=== PATIENT | male | born 1935 | race Caucasian/White ===

== ENCOUNTER → 2017-05-22 | Outpatient (CLI) | payer MEDICARE, OTHER ==
[2015-12-26 12:24] VITALS: BMI 30.1
[~2017-05-22] MED LIST: ACE325 PO; ALB6.7R INH; ALBU8.5H IH; ASP325 PO; AZI250 PO; BISA-229 PO; CALC-649 PO; CALC500T42 PO; CALC500T6 PO; CALC600T72 PO; CALC600T82 PO; CEPH500T7 PO; DILT-145 PO; DILT180C73 PO; DILT240C PO; DILT240C76 PO; DOC100 PO; DOCU-299 PO; DOCU-416 PO; FERR325C2 PO; FLUT16SP19 NS; FLUT1DIS28 IH; FURO40TA35 PO; GLUC100026 PO; GLUC1TAB13 PO; GLUC500C29 PO; GLUC500T22 PO; HYDR-317 PO; IBU200 PO; LEV500 PO; LEVO500T PO; LOR5 PO; METO25TA23 PO; METO25TA93 PO; MULT-56 PO; MULT-820 PO; MULT-865 PO; MULT-977 PO; NEOM28OI14 TP; NYST15CR32 TP; OMEG-23 PO; OSTEO BIFLEX PO; OXYB10TA21 PO; OXYGEN INH; OXYGENHOME INH; PANT40TA65 PO; PER PO; PHEN200T32 PO; POLY17PO25 PO; POTA-28 PO; POTA10CA40 PO; POTA99TA13 PO; PSYL0.5241 PO; PSYL660P5; RIVA20TA PO; SULI200T84 PO; TAMS0.4C25 PO; TOLT4CAP13 PO; TRAM-420 PO; TRAZ-163 PO; WAR5 PO; WAR75 PO; WARF10TA29 PO; [UNRECOGNIZED DRUG - REMARK]
== END ==
LOC: RESP 07:07
PROVIDERS: ATTEND Family Medicine
DX: Z99.81 Dependence on supplemental oxygen (principal); J98.4 Other disorders of lung
CPT/HCPCS: 94060; 94726; 94729

== ENCOUNTER 2017-06-24 09:00 | Outpatient (RCR) | payer MEDICARE, OTHER ==
[2015-12-26 12:24] VITALS: BMI 30.1
== END 2017-06-27 ==
LOC: RESP 09:00
PROVIDERS: ATTEND Family Medicine
DX: J44.9 Chronic obstructive pulmonary disease, unspecified (principal)
CPT/HCPCS: G0424 ×9

== ENCOUNTER → 2017-07-16 | Outpatient (CLI) | payer MEDICARE, OTHER ==
[2015-12-26 12:24] VITALS: BMI 30.1
--- NOTE | 2017-07-18 13:57 | RT HOLTER TEST ---
FACILITY: [facility] PATIENT NAME: NOVA MILLER : [id number] MR: [id number] V: [id number] EXAM DATE: ORDERING PHYSICIAN: FABIAN BLAIR TECHNOLOGIST: Dejon Hook-up date: 2017-07-16 14:39:00 Duration: 24:39:00 Test Indications: TORY/TACHY/A-FIB Medications: SEE LIST 05954 QRS complexes 699 Ventricular ectopics which represent <1 % of total QRS comp. 3 Supraventricular ectopics which represent <1 % of total QRS comp. * Paced QRS complexes which represent % of total QRS comp. VENTRICULAR ECTOPY 691 Isolated 194 Bigeminal Cycles 4 Couplets 0 Runs 0 Beats in Runs * Beats LONGEST at * BPM at :: -- * Beats FASTEST at * BPM at :: -- SUPRAVENTRICULAR ECTOPY 3 Isolated 0 Couplets 0 Runs 0 Beats in Runs * Beats LONGEST at * BPM at :: -- * Beats FASTEST at * BPM at :: -- HEART RATES 31 MIN at 05:56:31 2017-07-17 64 AVG 177 MAX at 09:46:31 2017-07-17 LONGEST RR 2.128 secs at 02:20:59 2017-07-17 S-T LEVELS Channel 1 -12.800 mm MIN at 14:39:00 2017-07-16 -12.800 mm MAX at 14:39:00 2017-07-16 Channel 3 -12.800 mm MIN at 14:39:00 2017-07-16 -12.800 mm MAX at 14:39:00 2017-07-16 Underlying rhythm is atrial fibrillation. Episodes of tachycardia were noted with rates as high as 17 0bpm. Bradycardia with rates in 30-35bpm range were noted during usual sleeping hours. Pauses in 2-2.5 second range were noted. Occasional ventricular ectopy with some bigeminy was noted throughout the study. A few couplets were recorded. No runs were noted. Confirmed by JAMEEL RODRÍGUEZ ([id number]) on 07/18/2017 1:57:02 PM Referred By: Overread By: JAMEEL RODRÍGUEZ
== END ==
LOC: RESP 14:25
PROVIDERS: ATTEND Family Medicine
DX: I48.91 Unspecified atrial fibrillation (principal)
CPT/HCPCS: 93225; 93226

== ENCOUNTER 2017-07-31 09:00 | Outpatient (RCR) | payer MEDICARE, OTHER ==
[2015-12-26 12:24] VITALS: BMI 30.1
[2017-08-06] MEDS ORDERED: POTA10CA40 PO (16:35)
[2017-08-06] MEDS ORDERED: FURO40TA35 PO (16:35)
== END 2017-08-07 ==
LOC: RESP 09:00
PROVIDERS: ATTEND Family Medicine
DX: J44.9 Chronic obstructive pulmonary disease, unspecified (principal)
CPT/HCPCS: G0424 ×7

== ENCOUNTER → 2017-08-11 | Outpatient (CLI) | payer MEDICARE, OTHER ==
[2015-12-26 12:24] VITALS: BMI 30.1
[2017-08-11 11:16] LABS: PLATELET COUNT, AUTOMATED 163 K/uL (150-450)
== END ==
LOC: LAB 10:53
PROVIDERS: ATTEND Family Medicine
DX: I10 Essential (primary) hypertension (principal)
CPT/HCPCS: 36415; 82040; 82247; 82310; 82374; 82435; 82565; 82947; 84075; 84132; 84155; 84295; 84450; 84460; 84520; 85025

== ENCOUNTER 2017-10-16 14:30 | Outpatient (RCR) | payer MEDICARE, OTHER ==
[2015-12-26 12:24] VITALS: BMI 30.1
--- NOTE | 2017-09-18 13:53 | PT INITIAL EVALUATION ---
MEDICAL DIAGNOSIS: back pain, knee pain (bilateral) TREATMENT DIAGNOSIS: same DATE OF ONSET: 09/17/13 SUBJECTIVE: Av Akbar presents to physical therapy with complaints of low back pain and B knee pain that probably started 3-4 years ago following an accident in which he broke his back and 6 ribs. He reports that he can only walk or stand for 10-15 minutes before he is required to sit down due to the increased low back pain. He reports that his pain goes away if he sits down anywhere. Furthermore, he reports that his pain is better if he lies down as well. He reports that he is able to sleep without any problems. He reports that he had imaging 3-4 years ago. He denies unexplained weight loss, night pain, abnormal gait, or increased pain with coughing, sneezing, or straining. Pain location is L3-S1 spinous process, B knees (anterior), anterior hip (L) and described as . Pain scale is 1 on a ten point pain scale. REHAB PROBLEM LIST: Increased Pain Decreased ROM Decreased Strength Decreased Endurance Decreased Balance Decreased Function Decreased Gait PREVIOUS MEDICAL HISTORY: See EMR OCCUPATION: Retired OBJECTIVE: Posture: He demonstrated B rounded shoulders, forward head, increased thoracic kyphosis, and decreased lumbar lordosis. ROM: Trunk AROM: flexion: NIL with muscular end feel. extension: NIL with painful end feel. sidegliding R: NIL with muscular end feel. sidegliding L: NIL with painful end feel Strength: B hip abduction, adduction, extension: 4/5. B hip adduction, B knee extension and flexion: 4+/5. B ankle DF and PF: 4/5; no pain with MMT's. Palpation: TTP: L3-S1 spinous process, B anterior knees Sensation: Will assess in the next few sessions Special Tests: Will assess B knee in the next few sessions. Repeated prone in lying: pain felt during the test and better following the test with increased trunk AROM in all directions with muscular end feels versus painful end feels in all directions. Mobility: Independent Gait: Without AD: he demonstrated the following gait mechanics: decreased velocity, forward trunk lean, increased base of support, decreased pelvic rotation, and decreased B feet clearance, however, he did not demonstrate any LOBs throughout the session. Balance: Will assess in the next few sessions ASSESSMENT: Av will benefit from skilled physical therapy addressing the listed impairments to improve function and QOL. Based on his examination, his provisional classification would be posterior derangement that responded well to extension based principles. He is independent on his specific exercise addressing his low back pain along with education on proper use of lumbar support to improve posture while sitting down. Short Term Goals 1 week: Pt will demonstrate centralized low back pain to improve function and QOL. 4 weeks: Pt will demonstrate abolished low back pain to improve function and QOL. 6 weeks: Pt will improve B LE strength, decrease knee pain, and return to prior level of function to improve function and QOL. Patient's Goals reduce back pain, be able to walk without pain, and reduce knee pain with standing and sitting (or increasing B knee bend) PLAN: Patient to be seen for Manual Therapy/STM/MET Strengthening/condition Range of Motion Spinal Stabilization Work Hardening/Cond Stretching Neuromuscular Re-ed Closed Chain Program Posture/Body mechanics Gait Trg/Balance Trg Home Exercise Program Therapeutic Activities 2x/Week for 6 Weeks If you have any questions, comments, or concerns about this report or plan, please contact me at . Thank you, Kermit Santana, PT, DPT MTDD
--- NOTE | 2017-11-11 16:15 | PT PLAN OF CARE ---
Physician: Brenda Christianson MD Patient is being seen: 2x/week Therapist: Kermit Santana, PT, DPT Medical Diagnosis: back pain, knee pain (bilateral) Treatment Diagnosis: same Date of Onset: 09/17/13 Date of Initial Evaluation: 09/17/17 Date patient was last seen: 11/06/17 Number of treatments: 6 Number of cancellations/No shows: 2 INTERVENTIONS: Manual Therapy/STM/MET Strengthening/condition Range of Motion Spinal Stabilization Work Hardening/Cond Stretching Neuromuscular Re-ed Closed Chain Program Posture/Body mechanics Gait Trg/Balance Trg Home Exercise Program Therapeutic Activities GOALS: 1 week: Pt will demonstrate centralized low back pain to improve function and QOL. Progressed well 4 weeks: Pt will demonstrate abolished low back pain to improve function and QOL. Progressed well 6 weeks: Pt will improve B LE strength, decrease knee pain, and return to prior level of function to improve function and QOL. Progressed well PATIENT'S GOAL: reduce back pain, be able to walk without pain, and reduce knee pain with standing and sitting (or increasing B knee bend) Status of Patient's Goals: Progressed well Patient Compliance: Good Prognosis: Good Reasons for continuing therapy: This is a discharge note for Av Akbar. He was progressing well with decreased and abolished low back pain along with increased gluteal, hamstring, quad, gastroc/soleus strength; however, he experienced a fall and injuried his shoulder. Furthermore, he reports that he would like to take a break from PT to allow his shoulder to heal and then he will come when he feels like he is ready. As a result, he will be discharged from PT. Posture: He demonstrated B rounded shoulders, forward head, increased thoracic kyphosis, and decreased lumbar lordosis. ROM: Trunk AROM: flexion: NIL with muscular end feel. extension: NIL with painful end feel. sidegliding R: NIL with muscular end feel. sidegliding L: NIL with painful end feel Strength: B hip abduction, adduction, extension: 4/5. B hip adduction, B knee extension and flexion: 4+/5. B ankle DF and PF: 4/5; no pain with MMT's. Palpation: TTP: L3-S1 spinous process, B anterior knees Special Tests: Will assess B knee in the next few sessions. Repeated prone in lying: pain felt during the test and better following the test with increased trunk AROM in all directions with muscular end feels versus painful end feels in all directions. Mobility: Independent If you have any questions, please contact me at [phone]. Thank you, Kermit Santana PT, DPT CM
== END 2017-10-16 18:00 | disposition home or self-care (01) ==
LOC: PT 14:30
PROVIDERS: ATTEND Family Medicine
DX: M25.562 Pain in left knee (principal); M25.561 Pain in right knee; M54.5 Low back pain
CPT/HCPCS: 97162

== ENCOUNTER 2017-10-28 11:46 | Emergency (ER) | payer MEDICARE, OTHER ==
[2015-12-26 12:24] VITALS: Wt 97.5 kg
--- NOTE | 2017-10-28 11:49 | ER Report ---
History and Physical Time Seen By MD: 11:48 HPI/ROS CHIEF COMPLAINT: Fall down steps HISTORY OF PRESENT ILLNESS: Patient is a 82-year-old male here with complaints of right shoulder pain, mild headache on Xarelto and a right lazo laceration/ abrasion. Unknown last tetanus date. Patient denies neck or back pain, chest pain, shortness of breath, abdominal pain, nausea, vomiting. He reports that he missed a step all descending and fell. Denies loss of consciousness. REVIEW OF SYSTEMS: Constitutional: No fever, no chills. Eyes: No discharge. ENT: No sore throat. Cardiovascular: No chest pain, no palpitations. Respiratory: No cough, no shortness of breath. Gastrointestinal: No abdominal pain, no vomiting. Genitourinary: No hematuria. Musculoskeletal: No back pain. Skin: Small abrasion to the lazo of her right lower extremity Neurological: Mild headache, no focal neurological deficits. Allergies: Coded Allergies: No Known Allergies (Verified Allergy, Mild, 09/12/06) Uncoded Allergies: HAYFEVER (Allergy, Intermediate, UNKNOWN, 10/16/11) Home Meds Active Scripts Furosemide (LASIX) 40 Mg Tablet, 1 TAB PO DAILY for 90 Days, #135 TAB 1 Refill Prov:FABIAN BLAIR MD 08/06/17 Potassium Chloride (POTASSIUM CHLORIDE) 10 Meq Capsule.er, 1 CAP PO DAILY for 90 Days, #90 CAP 3 Refills Prov:FABIAN BLAIR MD 08/06/17 Diltiazem Hcl (CARDIZEM CD) 180 Mg Cap.er.24h, 180 MG PO DAILY for 90 Days, #90 CAP 4 Refills Prov:FABIAN BLAIR MD 07/11/17 Fluticasone Prop 50 Mcg Ns (FLONASE 50 MCG NS) 16 Gm [place].susp, 2 SPRAYS NS QDAY for 30 Days, #1 BOT 3 Refills Prov:FABIAN BLAIR MD 06/16/17 Rivaroxaban 20 Mg (XARELTO 20 MG) 20 Mg Tablet, 1 TAB PO DAILY, #90 TAB 1 Refill Prov:FABIAN BLAIR MD 05/27/17 Albuterol Sulfate 90 Mcg/Act (PROAIR HFA 90 MCG/ACT) 8.5 Gm Hfa.aer.ad, 1-2 PUFF IH Q4H Y for SHORTNESS OF BREATH, #1 INHALER 11 Refills Prov:FABIAN BLAIR MD 05/23/17 NYSTATIN 098538 UNT/ML Topical Cream (NYSTATIN 196310 UNT/ML Topical Cream) 15 Gm Cream..g., 1 JUAN TP BID, #15 GM Apply topically to affected area twice daily for 2 weeks. Prov:FABIAN BLAIR MD 01/22/17 Reported Medications Calcium Carbonate/Vitamin D3 (CALCIUM 600 + VIT D 200 TABLET) 1 Each Tablet, 1 EACH PO DAILY 01/22/17 Oxygen (OXYGEN) Inha, 2 L INH, L 01/22/17 [place]-3 Fatty Acids/Fish Oil (FISH OIL 1,000 MG SOFTGEL) 1 Each Capsule, 1 EACH PO BID, CAPSULE 01/22/17 Multivit-Min/FA/Lycopen/Lutein (Men 50 Plus Multivitamin Tab) 300 Mcg-600 Mcg- 300 Mcg Tablet, 1 TAB PO DAILY 01/22/17 Glucosamine Hcl/Chondr Painting A Na (OSTEO BI-FLEX CAPLET) 1 Each Tablet, 1 EACH PO BID 01/22/17 Docusate Sodium (COLACE) 100 Mg Capsule, 1 CAP PO BID, CAPSULE 01/22/17 Bisacodyl (DULCOLAX) 5 Mg Tablet.dr, 2 TAB PO HS 01/22/17 Polyethylene Glycol 3350 (MIRALAX) Unknown Strength Powd.pack, PO, PKT 01/01/17 Hx Smoking: Yes (SMOKED 1 PPD SINCE AGE 11) Smoking Status: Former Smoker Exposure to Second Hand Smoke?: No Hx Substance Use Disorder: No Hx Alcohol Use: Yes Constitutional Vital Sign - Last 24 Hours 10/28/17 10/28/17 10/28/17 10/28/17 11:53 11:54 12:00 12:16 Temp 97.8 Pulse 84 Resp 20 B/P (MAP) 145/83 145/83 (103) 132/69 (90) Pulse Ox 95 99 O2 Delivery Nasal Cannula 10/28/17 12:30 B/P (MAP) 133/64 (87) Physical Exam General Appearance: The patient is alert, has no immediate need for airway protection and no signs of toxicity. NAD Eyes: Pupils equal and round no pallor or injection. ENT, Mouth: Mucous membranes are moist. Respiratory: There are no retractions, lungs are clear to auscultation. Cardiovascular: Regular rate and rhythm. [ ] Gastrointestinal: Abdomen is soft and non tender, no masses, bowel sounds normal. Neurological: No focal deficits Skin: + right lazo laceration Musculoskeletal: Neck is supple non tender. Extremities are nontender, nonswollen and have full range of motion. DIFFERENTIAL DIAGNOSIS: After history and physical exam differential diagnosis was considered for concussion, contusion, intracranial bleeding, fracture. Medical Decision Making EKG/Imaging Imaging EXAMINATION: Right shoulder, 2 views 10/28/2017 11:57 AM HISTORY: fall, pain COMPARISON: Chest x-ray which partially visualized shoulder 04/09/2017. FINDINGS: Images include frontal and scapular Y projections. Spurring of the AC joint. Irregularity of the undersurface of the acromion with heterogeneous lucencies in the humeral head along the cuff insertion and upward subluxation of the humeral head with respect to the bony glenoid suggesting cuff pathology. No dislocation. No acute bony injury. There are curvilinear densities adjacent to the right hilum and over the right upper lung which are unchanged suggestive of embolized glue from previous vertebroplasty. IMPRESSION: No acute bony injury of the shoulder. Degenerative changes and features suggesting cuff pathology. EXAMINATION: CT Head Without Contrast 10/28/2017 11:57 AM HISTORY: HEADACHE TECHNIQUE: Contiguous axial images were obtained from the skull base to the vertex without intravenous contrast. One of the following dose optimization techniques was utilized in the performance of this exam: Automated exposure control; adjustment of the mA and/ or kV according to the patient's size; or use of an iterative reconstruction technique. Specific details can be referenced in the facility's radiology CT exam operational policy. COMPARISON STUDIES: 02/10/2017. FINDINGS: Ventricles / sulci / fissures: Enlarged lateral and third ventricles. The ventricles are essentially stable in size. An oblique measurement across the posterior left lateral ventricle is now 3.0 cm (image 42), 2.9 cm previously. The third ventricle measures at 8 mm transversely (image 39), not significantly changed. CSF density extra-axial asymmetry lateral to the cerebral and the left is unchanged. Masses / hemorrhage / midline shift: negative White matter: Deep white matter and periventricular hypodensity is not significantly changed. Rivas-white differentiation: No acute finding. Extra-axial spaces: negative Dural venous sinuses / arterial structures: Internal carotid intracranial atherosclerotic calcifications. Skull base / calvarium: Stable appearance status post left suboccipital craniotomy. No acute finding. Visualized mastoid air cells / paranasal sinuses: negative IMPRESSION: 1. Stable appearance status post left suboccipital craniotomy. 2. Ventricular prominence and white matter hypodensities are unchanged. No acute mass, stroke, or hemorrhage. ED Course/Re-evaluation ED Course Patient is an 82-year-old male who fell down several steps prior to arrival and struck his head and right shoulder as well as right lazo. Patient is on Xarelto so he came to the ED for further evaluation. CT showed no acute intracranial pathology. X-ray of the shoulder showed no acute fracture, dislocation. Patient was stable at time of discharge. Decision to Disposition Date: Oct 28, 2017 Decision to Disposition Time: 13:00 Depart Departure Latest Vital Signs Vital Signs Date Time Temp Pulse Resp B/P (MAP) Pulse Ox O2 Delivery O2 Flow Rate FiO2 10/28/17 12:30 133/64 (87) 10/28/17 12:16 99 10/28/17 11:53 97.8 84 20 Nasal Cannula Impression: Primary Impression: Fall Condition: Improved Disposition: HOME OR SELF-CARE Referrals: FABIAN BLAIR MD (PCP) Patient Instructions: Contusion in Adults (ED), Fall Prevention (ED) Additional Instructions: Please follow up with her family doctor in the next week. UMU POLLACK DO Oct 28, 2017 11:49
[2017-10-28] MEDS ORDERED: DIPHTH/TETANUS/ACEL. PERTUSSIS IM ONLY ONE (12:00)
[2017-10-28 12:30] VITALS: BP 133/64
--- NOTE | 2017-10-28 12:42 | RADIOLOGY IMAGING REPORT ---
FACILITY: [facility] [place] PATIENT NAME: Av Akbar : 1935 MR: [id number] V: [id number] EXAM DATE: ORDERING PHYSICIAN: UMU POLLACK TECHNOLOGIST: Location: [facility] Patient: Av Akbar : 1935 Visit/Account:[id number] Date of Sevice: 10/28/2017 EXAMINATION: Right shoulder, 2 views 10/28/2017 11:57 AM HISTORY: fall, pain COMPARISON: Chest x-ray which partially visualized shoulder 04/09/2017. FINDINGS: Images include frontal and scapular Y projections. Spurring of the AC joint. Irregularity of the undersurface of the acromion with heterogeneous lucencies in the humeral head along the cuff i nsertion and upward subluxation of the humeral head with respect to the bony glenoid suggesting cuff pathology. No dislocation. No acute bony injury. There are curvilinear densities adjacent to the right hilum and over the right upper lung which are u nchanged suggestive of embolized glue from previous vertebroplasty. IMPRESSION: No acute bony injury of the shoulder. Degenerative changes and features suggesting cuff p athology. Report Dictated By: Gregorio Szymanski MD at 10/28/2017 12:34 PM Report E-Signed By: Gregorio Szymanski MD at 10/28/2017 12:37 PM WSN:[id number]
--- NOTE | 2017-10-28 12:54 | RADIOLOGY IMAGING REPORT ---
FACILITY: [facility] [place] PATIENT NAME: Av Akbar : 1935 MR: [id number] V: [id number] EXAM DATE: ORDERING PHYSICIAN: UMU POLLACK TECHNOLOGIST: Location: [facility] Patient: Av Akbar : 1935 Visit/Account:[id number] Date of Sevice: 10/28/2017 EXAMINATION: CT Head Without Contrast 10/28/2017 11:57 AM HISTORY: HEADACHE TECHNIQUE: Contiguous axial images were obtained from the skull base to the vertex without intraven ous contrast. One of the following dose optimization techniques was utilized in the performance of this exam: Autom ated exposure control; adjustment of the mA and/or kV according to the patient's size; or use of an i terative reconstruction technique. Specific details can be referenced in the facility's radiology C T exam operational policy. COMPARISON STUDIES: 02/10/2017. FINDINGS: Ventricles / sulci / fissures: Enlarged lateral and third ventricles. The ventricles are essentially stable in size. An oblique measurement across the posterior left lateral ventricle is now 3.0 cm (phill ge 42), 2.9 cm previously. The third ventricle measures at 8 mm transversely (image 39), not signific antly changed. CSF density extra-axial asymmetry lateral to the cerebral and the left is unchanged. Masses / hemorrhage / midline shift: negative White matter: Deep white matter and periventricular hypodensity is not significantly changed. Rivas-white differentiation: No acute finding. Extra-axial spaces: negative Dural venous sinuses / arterial structures: Internal carotid intracranial atherosclerotic calcificati ons. Skull base / calvarium: Stable appearance status post left suboccipital craniotomy. No acute finding. Visualized mastoid air cells / paranasal sinuses: negative IMPRESSION: 1. Stable appearance status post left suboccipital craniotomy. 2. Ventricular prominence and white matter hypodensities are unchanged. No acute mass, stroke, or hem orrhage. Report Dictated By: Gregorio Szymanski MD at 10/28/2017 12:41 PM Report E-Signed By: Gregorio Szymanski MD at 10/28/2017 12:49 PM WSN:[id number]
== END 2017-10-28 13:18 | disposition home or self-care (01) ==
LOC: ER 11:54
DX: M25.511 Pain in right shoulder (principal); R51 Headache; W10.9XXA Fall (on) (from) unspecified stairs and steps, initial encounter
CPT/HCPCS: 70450; 73030; 90471; 90715; 99284; A4565

== ENCOUNTER 2017-12-18 18:17 | Emergency (ER) | payer MEDICARE, OTHER ==
[2015-12-26 12:24] VITALS: Wt 97.5 kg
[~2017-12-18 18:17] MED LIST changes: +ACET-2146 PO; -TRAZ-163 PO; +TRAZ100T31 PO
--- NOTE | 2017-12-18 19:50 | RADIOLOGY IMAGING REPORT ---
FACILITY: [facility] PATIENT NAME: Av Akbar : 1935 MR: [id number] V: [id number] EXAM DATE: ORDERING PHYSICIAN: YUAN MCCRARY TECHNOLOGIST: Location: [facility] Patient: Av Akbar : 1935 Visit/Account:[id number] Date of Sevice: 12/18/2017 THORACIC SPINE 2 VIEW LUMBAR SPINE 2 OR 3 VIEW INDICATION: Fall. Back pain. COMPARISON: Chest x-ray dated 03/20/2017. Thoracolumbar spine radiographs dated 09/30/2013. FINDINGS: AP and lateral views of the thoracic and lumbar spine. Diffuse osteopenia. Bilateral pedicle screws at T11, T12, L2, L3, and L4 with interconnecting rods. No radiographic evide nce of hardware failure. Stable chronic L1 compression fracture with approximately 75% loss of vertebral body height. Stable c hronic L2 compression fracture with up to 40% loss of vertebral body height anteriorly. No additional compression fractures. Mild degenerative changes in the thoracic and lumbar spine. Stable cement in the right upper lobe of the lung, likely within vascular structures. This may be sec ondary to vertebroplasty cement embolization. Aortic calcifications. Multiple surgical clips projecting over the pelvis. IMPRESSION: Stable chronic L1 and L2 compression fractures. No new compression fractures. Report Dictated By: Peng Last MD at 12/18/2017 7:37 PM Report E-Signed By: Peng Last MD at 12/18/2017 7:47 PM WSN:[email or web address]
--- NOTE | 2017-12-18 19:50 | RADIOLOGY IMAGING REPORT ---
FACILITY: [facility] [place] PATIENT NAME: Av Akbar : 1935 MR: [id number] V: [id number] EXAM DATE: ORDERING PHYSICIAN: YUAN MCCRARY TECHNOLOGIST: Location: [facility] Patient: Av Akbar : 1935 Visit/Account:[id number] Date of Sevice: 12/18/2017 THORACIC SPINE 2 VIEW LUMBAR SPINE 2 OR 3 VIEW INDICATION: Fall. Back pain. COMPARISON: Chest x-ray dated 03/20/2017. Thoracolumbar spine radiographs dated 09/30/2013. FINDINGS: AP and lateral views of the thoracic and lumbar spine. Diffuse osteopenia. Bilateral pedicle screws at T11, T12, L2, L3, and L4 with interconnecting rods. No radiographic evide nce of hardware failure. Stable chronic L1 compression fracture with approximately 75% loss of vertebral body height. Stable c hronic L2 compression fracture with up to 40% loss of vertebral body height anteriorly. No additional compression fractures. Mild degenerative changes in the thoracic and lumbar spine. Stable cement in the right upper lobe of the lung, likely within vascular structures. This may be sec ondary to vertebroplasty cement embolization. Aortic calcifications. Multiple surgical clips projecting over the pelvis. IMPRESSION: Stable chronic L1 and L2 compression fractures. No new compression fractures. Report Dictated By: Peng Last MD at 12/18/2017 7:37 PM Report E-Signed By: Peng Last MD at 12/18/2017 7:47 PM WSN:[id number]
--- NOTE | 2017-12-18 19:56 | ER Report ---
History and Physical Time Seen By MD: 18:20 Hx. of Stated Complaint: FALL YESTERDAY - C/O MEDIAL LOW BACK PAIN HPI/ROS CHIEF COMPLAINT: back pain HISTORY OF PRESENT ILLNESS: pt was walking in house yesterday when he tripped on rug, his leg gave out, causing him to tumble and fall on his hands, knees, and left side. He did not strike head, lose consciousness, or suffer any extremity injury or pain. His son was present and helped him up no patient feels like he may have been able to get up by himself. At the time patient noted some mid back pain and left hip pain but was not too concerned about this. He ambulated normally yesterday and went to bed without discomfort. When he awoke he did not feel pain until he got up to move and then again noticed low and mid back pain and mild left hip pain. Today patient has been able to ambulate at baseline though he notes that ambulating with his walker does help ease the pain a little bit. Patient has not taken anything for the pain or attempted to ice the area. He has no numbness in the legs weakness incontinence. REVIEW OF SYSTEMS: Constitutional: No fever, no chills. Eyes: No discharge. ENT: No sore throat. Cardiovascular: No chest pain, no palpitations. Respiratory: No cough, no shortness of breath. Gastrointestinal: No abdominal pain, no vomiting. Genitourinary: No hematuria. Musculoskeletal: above Skin: No rashes. Neurological: No headache. Allergies: Coded Allergies: No Known Allergies (Verified Allergy, Mild, 12/18/17) Uncoded Allergies: HAYFEVER (Allergy, Intermediate, UNKNOWN, 10/16/11) Home Meds Active Scripts Rivaroxaban 20 Mg (XARELTO 20 MG) 20 Mg Tablet, 1 TAB PO DAILY, #90 TAB 1 Refill Prov:FABIAN BLAIR MD 12/01/17 Furosemide (LASIX) 40 Mg Tablet, 1 TAB PO DAILY for 90 Days, #135 TAB 1 Refill Prov:FABIAN BLAIR MD 08/06/17 Potassium Chloride (POTASSIUM CHLORIDE) 10 Meq Capsule.er, 1 CAP PO DAILY for 90 Days, #90 CAP 3 Refills Prov:FABIAN BLAIR MD 08/06/17 Diltiazem Hcl (CARDIZEM CD) 180 Mg Cap.er.24h, 180 MG PO DAILY for 90 Days, #90 CAP 4 Refills Prov:FABIAN BLAIR MD 07/11/17 Fluticasone Prop 50 Mcg Ns (FLONASE 50 MCG NS) 16 Gm [place].susp, 2 SPRAYS NS QDAY for 30 Days, #1 BOT 3 Refills Prov:FABIAN BLAIR MD 06/16/17 Albuterol Sulfate 90 Mcg/Act (PROAIR HFA 90 MCG/ACT) 8.5 Gm Hfa.aer.ad, 1-2 PUFF IH Q4H Y for SHORTNESS OF BREATH, #1 INHALER 11 Refills Prov:FABIAN BLAIR MD 05/23/17 NYSTATIN 160292 UNT/ML Topical Cream (NYSTATIN 157045 UNT/ML Topical Cream) 15 Gm Cream..g., 1 JUAN TP BID, #15 GM Apply topically to affected area twice daily for 2 weeks. Prov:FABIAN BLAIR MD 01/22/17 Reported Medications Acetaminophen 500 Mg Tab (ACETAMINOPHEN EXTRA STRENGTH) 500 Mg Tablet, 2 TAB PO BID, TAB 12/11/17 Calcium Carbonate/Vitamin D3 (CALCIUM 600 + VIT D 200 TABLET) 1 Each Tablet, 1 EACH PO DAILY 01/22/17 Oxygen (OXYGEN) Inha, 2 L INH, L 01/22/17 [place]-3 Fatty Acids/Fish Oil (FISH OIL 1,000 MG SOFTGEL) 1 Each Capsule, 1 EACH PO BID, CAPSULE 01/22/17 Multivit-Min/FA/Lycopen/Lutein (Men 50 Plus Multivitamin Tab) 300 Mcg-600 Mcg- 300 Mcg Tablet, 1 TAB PO DAILY 01/22/17 Glucosamine Hcl/Chondr Painting A Na (OSTEO BI-FLEX CAPLET) 1 Each Tablet, 1 EACH PO BID 01/22/17 Docusate Sodium (COLACE) 100 Mg Capsule, 1 CAP PO BID, CAPSULE 01/22/17 Bisacodyl (DULCOLAX) 5 Mg Tablet.dr, 2 TAB PO HS 01/22/17 Polyethylene Glycol 3350 (MIRALAX) Unknown Strength Powd.pack, PO, PKT 01/01/17 Reviewed Nurses Notes: Yes Hx Smoking: Yes (SMOKED 1 PPD SINCE AGE 11) Smoking Status: Former Smoker Exposure to Second Hand Smoke?: No Hx Substance Use Disorder: No Hx Alcohol Use: Yes Constitutional Vital Sign - Last 24 Hours 12/18/17 12/18/17 12/18/17 12/18/17 18:23 18:31 18:45 19:00 Temp 97.5 Pulse 68 56 ??? Resp 20 B/P (MAP) 181/90 161/72 (101) Pulse Ox 93 97 O2 Delivery Nasal Cannula 12/18/17 12/18/17 12/18/17 12/18/17 19:01 19:15 19:30 19:31 B/P (MAP) ???/??? (1665) 161/70 (100) Pulse Ox 99 98 12/18/17 12/18/17 19:45 19:59 Pulse 65 B/P (MAP) 154/78 (103) Pulse Ox 85 Physical Exam General Appearance: [The patient is alert, has no immediate need for airway protection and no signs of toxicity.] [ ] Eyes: Pupils equal and round no pallor or injection. ENT, Mouth: Mucous membranes are moist. Respiratory: There are no retractions, lungs are clear to auscultation. Cardiovascular: Regular rate and rhythm. Gastrointestinal: Abdomen is soft and non tender, no masses, bowel sounds normal. Neurological: alert, oriented, moves all extremities Skin: Warm and dry, no rashes. Musculoskeletal: Neck is supple non tender. Extremities are nontender, nonswollen and have full range of motion. back exam - t12-l3 ttp, no stepoffs, mild ttp, midline remote scar intact 5/5 ms legs without pain no hip pain or tenderness DIFFERENTIAL DIAGNOSIS: After history and physical exam differential diagnosis was considered for fracture, cauda equina, soft tissue injury or other emergent etiology Medical Decision Making EKG/Imaging Imaging X-ray: t, lspine was obtained. I viewed the images myself on the PACS system. My interpretation of the images is: no fracture, hardware intact. The radiologist interpretation had no clinically significant variation from this interpretation. ED Course/Re-evaluation ED Course Patient refuses pain medications in the emergency department. Patient ambulates without apparent discomfort. X-rays obtained due to midline tenderness and age the low pretest probability for fracture. X-rays unremarkable and show no acute fracture. On reassessment patient is comfortable again refuses pain medications. We discussed management at home as well as strict return precautions for any worsening symptoms that would indicate missed fracture, cauda equina, infection or other concerns. Decision to Disposition Date: Dec 18, 2017 Decision to Disposition Time: 20:00 Depart Departure Latest Vital Signs Vital Signs Date Time Temp Pulse Resp B/P (MAP) Pulse Ox O2 Delivery O2 Flow Rate FiO2 12/18/17 19:59 154/78 (103) 12/18/17 19:45 65 85 12/18/17 18:23 97.5 20 Nasal Cannula Impression: Primary Impression: Back pain Condition: Improved Disposition: HOME OR SELF-CARE Referrals: FABIAN BLAIR MD (PCP) Patient Instructions: Acute Low Back Pain (ED) Problem Qualifiers Primary Impression: Back pain Back pain location: low back pain Chronicity: acute Back pain laterality: midline Sciatica presence: without sciatica Qualified Codes: M54.5 - Low back pain YUAN MCCRARY MD Dec 18, 2017 19:56
[2017-12-18 19:59] VITALS: BP 154/78
== END 2017-12-18 20:10 | disposition home or self-care (01) ==
LOC: ER 18:35
DX: M54.5 Low back pain (principal); W01.0XXA Fall on same level from slipping, tripping and stumbling without subsequent striking against object, initial encounter; Z87.891 Personal history of nicotine dependence; Z99.81 Dependence on supplemental oxygen; Z79.899 Other long term (current) drug therapy
CPT/HCPCS: 72070; 72100; 99283

== ENCOUNTER → 2018-01-05 | Outpatient (CLI) | payer MEDICARE, OTHER ==
[2015-12-26 12:24] VITALS: BMI 30.1
[~2018-01-05] MED LIST changes: +DICL100G39 TOP
[2018-01-05 11:29] LABS: PLATELET COUNT, AUTOMATED 228 K/uL (150-450)
== END ==
LOC: LAB 10:38
PROVIDERS: ATTEND Family Medicine
DX: I48.91 Unspecified atrial fibrillation (principal); M54.9 Dorsalgia, unspecified; W19.XXXA Unspecified fall, initial encounter
CPT/HCPCS: 36415; 82040; 82247; 82310; 82374; 82435; 82565; 82947; 84075; 84132; 84155; 84295; 84450; 84460; 84520; 85025

== ENCOUNTER → 2018-04-23 | Outpatient (CLI) | payer MEDICARE, OTHER ==
[2015-12-26 12:24] VITALS: BMI 30.1
[~2018-04-23] MED LIST changes: +FLU180SY11 IM
== END ==
LOC: LAB 14:19
PROVIDERS: ATTEND Family Medicine
DX: I10 Essential (primary) hypertension (principal)
CPT/HCPCS: 36415; 82310; 82374; 82435; 82565; 82947; 84132; 84295; 84520

== ENCOUNTER → 2018-08-08 | Outpatient (CLI) | payer MEDICARE, OTHER ==
[2015-12-26 12:24] VITALS: BMI 30.1
[~2018-08-08] MED LIST changes: +POTA-53 PO
== END ==
LOC: LAB 15:03
PROVIDERS: ATTEND Urology
DX: C61 Malignant neoplasm of prostate (principal)
CPT/HCPCS: 36415; 84153

== ENCOUNTER 2018-08-23 23:21 | Observation (INO) | payer MEDICARE, OTHER ==
[~2018-08-23] VITALS: Ht 177.8 cm; Wt 91.6 kg
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
[2018-08-23] MEDS ORDERED: methylPREDNIS SUCC 125 MG/2ML IVP ONE (23:30)
[2018-08-23] MEDS ORDERED: ALBUTEROL/IPRATROPIUM 3 ML NEB NEB ONE (23:30)
--- NOTE | 2018-08-24 00:06 | EKG ---
FACILITY: [facility] [place] PATIENT NAME: NOVA MILLER : [id number] MR: [id number] V: [id number] EXAM DATE: ORDERING PHYSICIAN: GADIEL WOLFE TECHNOLOGIST: MADISON Patel Reason : DYSPNEA Blood Pressure : / mmHG Vent. Rate : 077 BPM Atrial Rate : 227 BPM P-R Int : 000 ms QRS Dur : 114 ms QT Int : 390 ms P-R-T Axes : 000 006 011 degrees QTc Int : 441 ms Appears to be atrial fibrillation Right bundle branch block Abnormal ECG Similar to previous EKG Confirmed by JAMEEL RODRÍGUEZ ([id number] on 08/24/2018 12:35:56 AM Referred By: Confirmed By:JAMEEL RODRGÍUEZ
[2018-08-24 00:10] LABS: PLATELET COUNT, AUTOMATED 183 K/uL (150-450)
--- NOTE | 2018-08-24 00:40 | RADIOLOGY IMAGING REPORT ---
FACILITY: [facility] PATIENT NAME: Av Akbar : 1935 MR: [id number] V: [id number] EXAM DATE: ORDERING PHYSICIAN: GADIEL WOLFE TECHNOLOGIST: [place] [facility] [place] Akbar : 1935 Visit/Account:[id number] Date of Sevice: 08/23/2018 CHEST SINGLE AP Additional pertinent History: None COMPARISON STUDIES: Comparisons made to a previous chest of 04/09/2017 FINDINGS: Support lines and catheters: Oxygen tubing Lungs and Pleura: Lung wadd[place] well expanded with no infiltrates or consolidations. No parenchymal ma ss lesions are seen. Blunting of both costophrenic angles compatible small effusions and/or pleural t hickening change. No significant interval change in the appearance when compared to previous chest x- ray. Probable methylmethacrylate embolization from previous kyphoplasty's in the right upper lung med ially. Heart and vasculature: Negative. [place] and Mediastinum: Negative. Bones and Chest wall: Status post pedicle fusion changes in the lower thoracic upper lumbar spine. Upper Abdomen: Negative. IMPRESSION: 1. Negative chest for acute cardiopulmonary disease. No significant interval change when compared to the previous examination. Report Dictated By: Christiano Roca MD at 08/24/2018 12:31 AM Report E-Signed By: Christiano Roca MD at 08/24/2018 12:36 AM WSN:[id number]
[2018-08-24 01:42] VITALS: BP 132/67
[2018-08-24] MEDS ORDERED: ACETAMINOPHEN 325 MG TAB PO PRN (01:50)
--- NOTE | 2018-08-24 02:16 | History & Physical ---
History of Present Illness Chief Complaint Weak History of Present Illness 82yo male with PMHx significant for chronic a-fib, pulmonary HTN, prostate cancer s/p prostatectomy, lumbar fusion, tic douloureux s/p craniotomy. He reports increasing dizziness and generalized weakness over the pasty several weeks. He states he has been having more orthostatic symptoms when he gets up to move around his home. Today his symptoms were worse. He tried to walk a short distance, but became very dizzy. He slumped to the floor aided by his so he would not fall. He denied any focal weakness/numbness. He denies any CP/palpitations. He has noted some slight increase in dyspnea, especially when he walks. He has not appreciated any fevers or chills at home, but did have a temp in the ER. His CXR shows cardiomegaly, but no obvious infiltrate. His WBC count is in normal range. His UA shows a few WBCs. He does wear a condom cath due to incontinence following prostatectomy. He was recommended for admission. History Problems: (1) Fusion of lumbar spine Status: Chronic (2) Tic douloureux Status: Chronic (3) History of craniotomy Status: Chronic (4) History of prostatectomy Status: Chronic (5) Prostate cancer Status: Chronic (6) Afib Status: Chronic (7) HTN (hypertension) Status: Chronic (8) Back pain Status: Chronic (9) COPD (chronic obstructive pulmonary disease) Status: Chronic Home Meds Active Scripts Rivaroxaban 20 Mg (XARELTO 20 MG) 20 Mg Tablet, 1 TAB PO DAILY, #90 TAB 1 Refill Prov:FABIAN BLAIR MD 06/01/18 Furosemide (LASIX) 40 Mg Tablet, 1 TAB PO DAILY for 90 Days, #90 TAB 1 Refill Prov:FABIAN BLAIR MD 05/15/18 Potassium Chloride (POTASSIUM CHLORIDE) 10 Meq Tab.er.prt, 1 TAB PO QDAY for 90 Days, #90 TAB 4 Refills Prov:FABIAN BLAIR MD 05/11/18 Diclofenac Sodium 1% Gel (VOLTAREN 1% GEL) 100 Gm Gel..gram., 2 GM TOP QID for 30 Days, #1 TUBE Prov:FABIAN BLAIR MD 03/20/18 Diltiazem Hcl (CARDIZEM CD) 180 Mg Cap.er.24h, 180 MG PO DAILY for 90 Days, #90 CAP 4 Refills Prov:FABIAN BLAIR MD 07/11/17 Fluticasone Prop 50 Mcg Ns (FLONASE 50 MCG NS) 16 Gm [place].susp, 2 SPRAYS NS Q DAY for 30 Days, #1 BOT 3 Refills Prov:FABIAN BLAIR MD 06/16/17 Albuterol Sulfate 90 Mcg/Act (PROAIR HFA 90 MCG/ACT) 8.5 Gm Hfa.aer.ad, 1-2 PUFF IH Q4H PRN for SHORTNESS OF BREATH, #1 INHALER 11 Refills Prov:FABIAN BLAIR MD 05/23/17 NYSTATIN 852543 UNT/ML Topical Cream (NYSTATIN 113549 UNT/ML Topical Cream) 15 Gm Cream..g., 1 JUAN TP BID, #15 GM Apply topically to affected area twice daily for 2 weeks. Prov:FABIAN BLAIR MD 01/22/17 Reported Medications Acetaminophen 500 Mg Tab (ACETAMINOPHEN EXTRA STRENGTH) 500 Mg Tablet, 2 TAB PO BID, TAB 12/11/17 Calcium Carbonate/Vitamin D3 (CALCIUM 600 + VIT D 200 TABLET) 1 Each Tablet, 1 EACH PO DAILY 01/22/17 Oxygen (OXYGEN) Inha, 2 L INH, L 01/22/17 [place]-3 Fatty Acids/Fish Oil (FISH OIL 1,000 MG SOFTGEL) 1 Each Capsule, 1 EACH PO BID, CAPSULE 01/22/17 Multivit-Min/FA/Lycopen/Lutein (Men 50 Plus Multivitamin Tab) 300 Mcg-600 Mcg- 300 Mcg Tablet, 1 TAB PO DAILY 01/22/17 Glucosamine Hcl/Chondr Painting A Na (OSTEO BI-FLEX CAPLET) 1 Each Tablet, 1 EACH PO BID 01/22/17 Docusate Sodium (COLACE) 100 Mg Capsule, 1 CAP PO BID, CAPSULE 01/22/17 Bisacodyl (DULCOLAX) 5 Mg Tablet.dr, 2 TAB PO HS 01/22/17 Polyethylene Glycol 3350 (MIRALAX) Unknown Strength Powd.pack, PO, PKT 01/01/17 Allergies: Coded Allergies: No Known Allergies (Verified Allergy, Mild, 08/23/18) Uncoded Allergies: HAYFEVER (Allergy, Intermediate, UNKNOWN, 10/16/11) Patient History: FH: leukemia FATHER FH: lung cancer FATHER FH: prostate cancer FATHER FHx: colon cancer FATHER Hx Smoking: Yes (SMOKED 1 PPD SINCE AGE 11) Smoking Status: Former Smoker Exposure to Second Hand Smoke?: No Caffeine Intake: Coffee Caffeine/Cups Per Day: 1 TO 3 CUPS COFFEE PER DAY. Hx Alcohol Use: Yes Hx Substance Use Disorder: No Social Drug Use: Never Review of Systems Constitutional: No Fever, No Chills, No Night Sweats Neurological: Weakness Eyes: No Vision Change, No Loss of Vision ENT: Hearing Loss (chronic) Cardiovascular: No Chest Pain, No Palpitations Respiratory: Shortness of Breath, Cough Gastrointestinal: No Nausea, No Vomiting, No Diarrhea, No Hematemesis, No Hematochezia, No Melena, No Abdominal Pain Genitourinary: Urinary Incontinence Musculoskeletal: Pain Exam Vital Signs Vital Signs Date Time Temp Pulse Resp B/P (MAP) Pulse Ox O2 Delivery O2 Flow Rate FiO2 08/24/18 01:00 132/64 (86) 08/24/18 00:51 91 22 94 08/23/18 23:44 3.0 08/23/18 23:26 100.5 Nasal Cannula General Appearance: Alert, Awake Neuro: Other (No focal motor deficts, but generalized weakness all groups) Eyes: PERRLA ENT: Oropharynx Clear, Other (mucosa tacky/dry) Neck: Other (surgical defect left occiput) Cardiovascular: Other (Irregular with systolic murmur) Respiratory: Other (decreased breath sounds bilaterally/no current rales or wheezes) Chest: No Tenderness GI: Abd Soft and Non-Tender : No CVA Tenderness, Other (condom cath in place) Extremities: Warm, Perfused Integumentary: Skin Intact without Lesion / Mass Psych: Alert & Oriented X3 Medical Decision Making Data Points Result Diagram: 08/23/18233808/23/182338 Item Value Date Time B-Type Natriuretic Peptide 210 pg/ml H 08/23/182338 Albumin 4.6 g/dl 08/23/182338 Total Protein 7.6 g/dl 08/23/182338 Troponin I 0.013 ng/ml 08/23/182338 Alkaline Phosphatase 62 U/L 08/23/182338 Alanine Aminotransferase (ALT/SGPT) 20 U/L 08/23/182338 Aspartate Amino Transf (AST/SGOT) 17 U/L 08/23/182338 Total Bilirubin 1.1 mg/dl 08/23/182338 Calcium Level 9.7 mg/dl 08/23/189 Lactate 2.5 mmol/L H 08/23/18 2339 Urine Mucus Few /HPF 08/23/185 Urine Hyaline Casts Few /LPF 08/23/18 2335 Urine Bacteria Moderate /HPF H 08/23/18 2335 Urine Transitional Epithelial Cells Few /LPF 08/23/18 2335 Urine Squamous Epithelial Cells Few /LPF 08/23/18 2335 Urine WBC 2 /HPF 08/23/18 2335 Urine RBC 1 /HPF 08/23/185 Urine Leukocyte Esterase Negative 08/23/185 Urine Urobilinogen Negative mg/dL 08/23/182334 Urine Bilirubin Negative 08/23/185 Urine Nitrite Positive H 08/23/182334 Urine Blood Negative 08/23/185 Urine Ketones Negative mg/dL 08/23/182334 Urine Glucose (UA) Negative mg/dL 08/23/185 Urine Protein 100 mg/dL 08/23/185 Urine Specific [place] 1.023 08/23/182334 Urine pH 5.0 pH 08/23/185 Urine Clarity Clear 08/23/182334 Urine Color Yellow 08/23/182334 Serum Alcohol < 10 mg/dl 08/24/18 0000 EKG / Imaging EKG Interpretation PATIENT NAME: NOVA MILLER : [id number] MR: [id number] V: [id number] EXAM DATE: ORDERING PHYSICIAN: GADIEL WOLFE TECHNOLOGIST: MARCELLOIER Test Reason : DYSPNEA Blood Pressure : / mmHG Vent. Rate : 077 BPM Atrial Rate : 227 BPM P-R Int : 000 ms QRS Dur : 114 ms QT Int : 390 ms P-R-T Axes : 000 006 011 degrees QTc Int : 441 ms Appears to be atrial fibrillation Right bundle branch block Abnormal ECG Similar to previous EKG Confirmed by JAMEEL RODRÍGUEZ ([id number]) on 08/24/2018 12:35:56 AM Referred By: Confirmed By:JAMEEL RODRÍGUEZ Imaging PATIENT NAME: Nova Miller : 1935 MR: [id number] V: [id number] EXAM DATE: ORDERING PHYSICIAN: GADIEL WOLFE TECHNOLOGIST: Location: [facility] [place] Patient: Nova Miller : 1935 Visit/Account:[id number] Date of Sevice: 08/23/2018 CHEST SINGLE AP Additional pertinent History: None COMPARISON STUDIES: Comparisons made to a previous chest of 04/09/2017 FINDINGS: Support lines and catheters: Oxygen tubing Lungs and Pleura: Lung waddell well expanded with no infiltrates or consolidations. No parenchymal mass lesions are seen. Blunting of both costophrenic angles compatible small effusions and/or pleural thickening change. No significant interval change in the appearance when compared to previous chest x-ray. Probable methylmethacrylate embolization from previous kyphoplasty's in the right upper lung medially. Heart and vasculature: Negative. Camille and Mediastinum: Negative. Bones and Chest wall: Status post pedicle fusion changes in the lower thoracic upper lumbar spine. Upper Abdomen: Negative. IMPRESSION: 1. Negative chest for acute cardiopulmonary disease. No significant interval change when compared to the previous examination. Report Dictated By: Christiano Roca MD at 08/24/2018 12:31 AM Report E-Signed By: Christiano Roca MD at 08/24/2018 12:36 AM [id number] Assessment and Plan Problems: (1) Weakness Status: Acute Assessment & Plan: No obvious cause at this time. This may be multifactorial with his a-fib, pulmonary HTN, chronic lung disease, possible dehydration, and potential acute infectious process. Will admit for further evaluation and treatment. Blood cultures have been done. Will check influenza screen. Will check urine culture as well. Will give gentle IV fluids. Will also have PT/OT see. (2) Afib Status: Chronic Assessment & Plan: He has been managed with diltiazem for rate control and Xarelto for CVA prophylaxis. No changes at this time. Will check echocardiogram to see if any changes in function. (3) Dyspnea Status: Acute Assessment & Plan: Will evaluate as noted above. No obvious infiltrate on CXR. May be pulmonary and/or possibly cardiac in origin. Continue supplemental oxygen. Further evaluation/treatment pending results. Copies to: FABIAN BLAIR MD ; Venous Thromboembolism Antithrombotics Is Pt On Any Antithrombotics?: Yes Exam Sepsis Risk: No Definite Risk Problem Qualifiers (1) Dyspnea: Dyspnea type: unspecified Qualified Codes: R06.00 - Dyspnea, unspecified JAMEEL RODRÍGUEZ MD Aug 24, 2018 02:16
[2018-08-24] MEDS ORDERED: VIT1CAPS9 (02:32)
[2018-08-24] MEDS ORDERED: cefTRIAXone 1 GM VIAL IVP SCH (03:00)
[2018-08-24] MEDS: NS(*) 0.9% 1000 ML BAG 1,000 ML IV PRN ×2 (03:49→20:29)
[2018-08-24 05:55] LABS: PLATELET COUNT, AUTOMATED 164 K/uL (150-450)
[2018-08-24 07:48] VITALS: BP 116/51
[2018-08-24] MEDS: DOCUSATE SODIUM 100 MG CAP PO SCH ×2 (09:23→20:29)
[2018-08-24] MEDS: DILTIAZEM CD 180 MG CAPCR PO SCH (09:23)
[2018-08-24] MEDS: RIVAROXABAN 10 MG TAB PO SCH (09:23)
[2018-08-24] MEDS: CALCIUM CARBONATE/VITAMIN D3 PO SCH (09:23)
--- NOTE | 2018-08-24 09:58 | Antimicrobial Stewardship ---
Antimicrobial Stewardship Empiricly appropriate: Yes (Ceftriaxone-possible UTI) Significant PMH: Yes (COPD, afib, PE, Prostate Ca) Support empiric regimen: Yes Approriate Cultures done: Yes (Blood Cx x 2 pending, Urine Cx- uncollected--> UA clean) Determine cumulative duration: 08/24/18- Day 1 Comment 82 yo M with history of a fib, PE, COPD, prostate cancer, urostomy who presented with SOB and falling. Upon discussion with the patient he reports dizziness with standing, but no SOB. Tmax 100.5 WBC 8.8 - 6.7 Chest xray- no acute findings Blood Cx - NGTD UA (-) BNP 210 Influenza A and B (-) Lactate 2.5-->1.2 Consider stopping antibiotics, UA has some bacteria, few WBCs, urine culture not indicated. Recommend d/c antibiotics. Carla Goldman, PharmD, OP CARLA GOLDMAN Aug 24, 2018 09:58
[2018-08-24 10:14] VITALS: Ht 177.8 cm; Wt 91.6 kg
--- NOTE | 2018-08-24 13:19 | Miscellaneous Provider Note ---
Miscellaneous Provider Note Note Stopped antibiotics. Will monitor. NAYE MCELROY DO Aug 24, 2018 13:19
--- NOTE | 2018-08-24 14:55 | NUR ---
Physical Therapy Impression PT/OT co-eval completed followed by treatment session for pt safety. Pt tolerated ambulation with FWW x 260' on 2 L/min supplemental O2 and sats remained in safe range throughout. Pt was able to carry on a conversation during ambulation as well and was agreeable to remain up in chair at end of treatment session. Pt notes that he is feeling significantly better today. Recommend Home Healthcare services for further strengthening and ensure adequate carryover of safety skills with use of FWW in the home environment. Physical Therapy Goals 1. Pt to be modified indep with all bed mobility and sup<>sit trnsfrs 2. Pt to be modified indep/SBA for sit to/from stand transfers 3. Pt to amb >200' with least restrictive device and O2 sats in safe range 4. Pt to kim up/down platform step with SBA/Modified indep Patient's Goals
[2018-08-24 15:00] VITALS: BP 133/61
[2018-08-24 15:40] VITALS: BP 107/60
--- NOTE | 2018-08-24 15:42 | NUR ---
Occupational Therapy Impression SBA bed mobility supine to sit. SBA ambulation x260ft with RW. SpO2 >90% on 2L. Pt reports feeling much improved this date. Rec services to improve strength and assist with recommendations for adaptive equipment needs in bathroom. Occupational Therapy Goals Patient's Goal
[2018-08-24 20:24] VITALS: BP 125/65
[2018-08-24 23:09] VITALS: BP 147/78
[2018-08-25] MEDS ORDERED: cefTRIAXone 1 GM VIAL IVP SCH (03:00)
[2018-08-25 03:07] VITALS: BP 118/47
[2018-08-25 07:13] VITALS: BP 130/54
[2018-08-25] MEDS: DILTIAZEM CD 180 MG CAPCR PO SCH (09:00)
[2018-08-25] MEDS: CALCIUM CARBONATE/VITAMIN D3 PO SCH (09:57)
[2018-08-25] MEDS: DOCUSATE SODIUM 100 MG CAP PO SCH (09:57)
[2018-08-25] MEDS: RIVAROXABAN 10 MG TAB PO SCH (09:58)
--- NOTE | 2018-08-25 10:01 | Hospitalist Depart ---
Discharge Summary Reason for Hosp/Final Diag: (1) Weakness Status: Acute Hospital Course & Plan: No obvious cause at this time. This may be multifactorial with his a-fib, pulmonary HTN, chronic lung disease, possible deh ydration, and potential acute infectious process. Blood cultures show no growth. Influenza negative. He was given gentle IV fluids and reported improvement in symptoms. Likely patient was dehydrated. PT/OT evaluated patient and recommended home health services. He will go home with [facility]. (2) Afib Status: Chronic Hospital Course & Plan: He has been managed with diltiazem for rate control and Xarelto for CVA prophylaxis. No changes at this time. Echocardiogram done does not show many changes from echo in 2014. He does have severe pulmonary hypertension. He was recommended to wear oxygen at all times. (3) Dyspnea Status: Acute Hospital Course & Plan: As noted above. No obvious infiltrate on CXR. Continue supplemental oxygen. Departure Latest Vital Signs Vital Signs 08/25/18 07:13 Temp 98.3 Pulse 45 Resp 20 B/P (MAP) 130/54 (79) Pulse Ox 98 O2 Delivery Nasal Cannula O2 Flow Rate 2.5 Weight (Pounds): 202 Weight (Ounces): 0.1 Result Diagram: 08/24/1853708/24/18537 Condition: Improved Discharge: Home, Home Health PT/OT Follow Up For: PT For Strengthening, OT For ADL's, PT Evaluation and Treat, OT Evaluation and Treat Discharge Instructions Home Meds Active Scripts Rivaroxaban 20 Mg (XARELTO 20 MG) 20 Mg Tablet, 1 TAB PO DAILY, #90 TAB 1 Refill Prov:FABIAN BLAIR MD 06/01/18 Furosemide (LASIX) 40 Mg Tablet, 1 TAB PO DAILY for 90 Days, #90 TAB 1 Refill Prov:FABIAN BLAIR MD 05/15/18 Potassium Chloride (POTASSIUM CHLORIDE) 10 Meq Tab.er.prt, 1 TAB PO QDAY for 90 Days, #90 TAB 4 Refills Prov:FABIAN BLAIR MD 05/11/18 Diclofenac Sodium 1% Gel (VOLTAREN 1% GEL) 100 Gm Gel..gram., 2 GM TOP QID for 30 Days, #1 TUBE Prov:FABIAN BLAIR MD 03/20/18 Diltiazem Hcl (CARDIZEM CD) 180 Mg Cap.er.24h, 180 MG PO DAILY for 90 Days, #90 CAP 4 Refills Prov:FABIAN BLAIR MD 07/11/17 Fluticasone Prop 50 Mcg Ns (FLONASE 50 MCG NS) 16 Gm [place].susp, 2 SPRAYS NS QDAY for 30 Days, #1 BOT 3 Refills Prov:FABIAN BLAIR MD 06/16/17 Albuterol Sulfate 90 Mcg/Act (PROAIR HFA 90 MCG/ACT) 8.5 Gm Hfa.aer.ad, 1-2 PUFF IH Q4H PRN for SHORTNESS OF BREATH, #1 INHALER 11 Refills Prov:FABIAN BLAIR MD 05/23/17 Reported Medications Vit C/E/Zn/Coppr/Lutein/Zeaxan (Preservision Areds 2 Softgel) 1 Each Capsule, BID 08/24/18 Acetaminophen 500 Mg Tab (ACETAMINOPHEN EXTRA STRENGTH) 500 Mg Tablet, 2 TAB PO BID, TAB 12/11/17 Calcium Carbonate/Vitamin D3 (CALCIUM 600 + VIT D 200 TABLET) 1 Each Tablet, 1 EACH PO DAILY 01/22/17 Oxygen (OXYGEN) Inha, 2 L INH, L 01/22/17 Glucosamine Hcl/Chondr Painting A Na (OSTEO BI-FLEX CAPLET) 1 Each Tablet, 1 EACH PO BID 01/22/17 Docusate Sodium (COLACE) 100 Mg Capsule, 1 CAP PO BID, CAPSULE 01/22/17 Bisacodyl (DULCOLAX) 5 Mg Tablet.dr, 2 TAB PO HS 01/22/17 Polyethylene Glycol 3350 (MIRALAX) Unknown Strength Powd.pack, PO, PKT 01/01/17 Discontinued Reported Medications [place]-3 Fatty Acids/Fish Oil (FISH OIL 1,000 MG SOFTGEL) 1 Each Capsule, 1 EACH PO BID, CAPSULE 01/22/17 Multivit-Min/FA/Lycopen/Lutein (Men 50 Plus Multivitamin Tab) 300 Mcg-600 Mcg- 300 Mcg Tablet, 1 TAB PO DAILY 01/22/17 Discontinued Scripts NYSTATIN 653177 UNT/ML Topical Cream (NYSTATIN 258812 UNT/ML Topical Cream) 15 Gm Cream..g., 1 JUAN TP BID, #15 GM Apply topically to affected area twice daily for 2 weeks. Prov:FABIAN BLAIR MD 01/22/17 Diet: Regular Activity: As Tolerated Special Instructions: Wear oxygen at all times. Continue current medication regimen. Follow up with Dr. Blair in 1 week. Copies to: FABIAN BLAIR MD ; Venous Thromboembolism Antithrombotics Is Pt On Any Antithrombotics?: Yes Problem Qualifiers (1) Dyspnea: Dyspnea type: unspecified Qualified Codes: R06.00 - Dyspnea, unspecified PAT JANG [employer]ORCYCLE REPAIRER Aug 25, 2018 10:01
--- NOTE | 2018-08-25 11:03 | NUR ---
OCCUPATIONAL THERAPY Dressing Assistance: Set-up Dressing Aid Required: None Bathing Assistance: N/T Bathing Equipment: Shower chair Home Assessment: Not Completed-Pt may benefit from home evaluation and recommendations for bathroom grab bar placement etc. Feeding Assistance: Independent Feeding Specialized Equipment: Verbalizes Needs: Yes Understands Precautions: Yes Cooperative: Yes Family Teaching: No Occupational Therapy Comment:
--- NOTE | 2018-08-25 12:34 | NUR ---
Physical Therapy Impression PT/OT co-treat following eval for pt safety, and time split for billing purposes. Please refer to eval note for details regarding pt mobility. PT recommends HHC upon d/c home to ensure successful carry over of walker use. Physical Therapy Goals 1. Pt to be modified indep with all bed mobility and sup<>sit trnsfrs 2. Pt to be modified indep/SBA for sit to/from stand transfers 3. Pt to amb >200' with least restrictive device and O2 sats in safe range 4. Pt to kim up/down platform step with SBA/Modified indep Patient's Goals
--- NOTE | 2018-08-25 12:34 | NUR ---
Physical Therapy Impression The pt has met PT goals and is safe to d/c home from a mobility stand point when medically appropriate. Pt is Lucas for transfers and ambulation with RW. Pt completed stair negotiation with RW and minimal verbal cues from PT. Pt may benefit from [facility] services upon d/c home. Physical Therapy Goals 1. Pt to be modified indep with all bed mobility and sup<>sit trnsfrs 2. Pt to be modified indep/SBA for sit to/from stand transfers 3. Pt to amb >200' with least restrictive device and O2 sats in safe range 4. Pt to kim up/down platform step with SBA/Modified indep Patient's Goals
[2018-09-01] MEDS ORDERED: IPRA3AMP10 IH (14:52)
[2018-09-01] MEDS ORDERED: AZIT-1 PO (17:02)
[2018-09-02] MEDS ORDERED: IPRA3AMP10 IH (14:02)
[2018-09-03] MEDS ORDERED: IPRA3AMP10 IH (09:45)
== END 2018-08-25 09:52 | disposition home or self-care (01) ==
LOC: ER 23:41 → MED 08-24 01:11 → INTOOBSV 08-24 01:11 → UNDOADMOB 08-24 01:11
PROVIDERS: ADMIT Internal Medicine; ATTEND Internal Medicine
DX: J44.9 Chronic obstructive pulmonary disease, unspecified (principal); R50.9 Fever, unspecified; R06.00 Dyspnea, unspecified; I10 Essential (primary) hypertension; I48.2 Chronic atrial fibrillation; R53.1 Weakness
CPT/HCPCS: 36415; 71045; 81001; 83605; 83880; 84484; 85025; 87040; 87502; 93005; 93306; 96374; 97116; 97161; 97165; 97530; 99284; A9270; G0378; G0480; J0696; J2930; J7030; 80320; 82040; 82247; 82310; 82374; 82435; 82565; 82947; 84075; 84132; 84155; 84295; 84450; 84460; 84520

== ENCOUNTER → 2018-09-01 | Outpatient (CLI) | payer MEDICARE, OTHER ==
[2018-08-24 10:14] VITALS: BMI 29.0
[~2018-09-01] MED LIST changes: +AZIT-1 PO; +IPRA3AMP10 IH; +VIT1CAPS9
[2018-09-01 15:00] LABS: PLATELET COUNT, AUTOMATED 217 K/uL (150-450)
--- NOTE | 2018-09-01 15:43 | RADIOLOGY IMAGING REPORT ---
FACILITY: [facility] - [place] PATIENT NAME: Av Akbar : 1935 MR: [id number] V: [id number] EXAM DATE: ORDERING PHYSICIAN: FABIAN BLAIR TECHNOLOGIST: Location: [facility] - [place], [place] Patient: Av Akbar : 1935 Visit/Account:[id number] Date of Sevice: 09/01/2018 Exam type: CHEST PA LAT History: sob Comparison: August 24, 2018. Findings: There is peribronchial thickening again noted bilaterally. This may be increased peribronchial adams es in the left lower lobe. This mild chronic blunting of both costophrenic angles. The cardiac silh ouette is enlarged but unchanged. There is no evidence of overt pulmonary edema. There is an exagge ration of normal thoracic kyphosis secondary to multilevel spondylotic changes. Posterior fixation h ardware is also noted in the thoracolumbar junction IMPRESSION: 1. Chronic peribronchial thickening again noted bilaterally. There may be slight increase in the pe ribronchial changes in the left lower lobe concerning for developing infiltrate Cardiomegaly unchanged Report Dictated By: Tory Rodriguez MD at 09/01/2018 3:35 PM Report E-Signed By: Tory Rodriguez MD at 09/01/2018 3:38 PM WSN:[email or web address]
== END ==
LOC: LAB 14:40
PROVIDERS: ATTEND Family Medicine
DX: I51.7 Cardiomegaly (principal); R91.8 Other nonspecific abnormal finding of lung field; I10 Essential (primary) hypertension
CPT/HCPCS: 36415; 71046; 82040; 82247; 82310; 82374; 82435; 82565; 82947; 84075; 84132; 84155; 84295; 84450; 84460; 84520; 85025

== ENCOUNTER → 2018-10-08 | Outpatient (CLI) | payer MEDICARE, OTHER ==
[2018-08-24 10:14] VITALS: BMI 29.0
[~2018-10-08] MED LIST changes: +GUAI600T57 PO; +LEVO750T44 PO
== END ==
LOC: LAB 13:33
PROVIDERS: ATTEND Family Medicine
DX: N18.9 Chronic kidney disease, unspecified (principal)
CPT/HCPCS: 36415; 82310; 82374; 82435; 82565; 82947; 84132; 84295; 84520

== ENCOUNTER → 2018-10-12 | Outpatient (CLI) | payer MEDICARE, OTHER ==
[2018-08-24 10:14] VITALS: BMI 29.0
[~2018-10-12] MED LIST changes: +IOPAMIDOL 76% 100 ML INFUS BTL 100 ML ONE
--- NOTE | 2018-10-12 16:01 | RADIOLOGY IMAGING REPORT ---
FACILITY: [facility] PATIENT NAME: Av Akbar : 1935 MR: [id number] V: [id number] EXAM DATE: ORDERING PHYSICIAN: FABIAN BLAIR TECHNOLOGIST: Location: [facility] Patient: Av Akbar : 1935 Visit/Account:[id number] Date of Sevice: 10/12/2018 CT CHEST W & W/O CON History: SOB, on 3 L of oxygen, pulmonary hypertension, recurrent pneumonia ADDITIONAL CLINICAL HISTORY: None TECHNIQUE: Contiguous axial images were performed through the chest to the level of the adrenal gla nds with and without IV contrast. Coronal and sagittal reformatting was also performed.Dose Lowerin g Technique One of the following dose optimization techniques was utilized in the performance of this exam: Autom ated exposure control; adjustment of the mA and/or kV according to the patient's size; or use of an i terative reconstruction technique. Specific details can be referenced in the facility's radiology C T exam operational policy. Contrast: 75 mL [id number] COMPARISON STUDIES: July 05, 2013. Lungs / Pleura: There is extensive pleural parenchymal scarring throughout the lungs that appears s imilar to the prior study. In the posterior lateral left lower lobe however there is a slight increa se in the dense band of airspace consolidation. There is extensive peribronchial thickening seen dipesh aterally and honeycombing in the lung bases Mediastinum/nodes: There are scattered subcentimeter mediastinal lymph nodes in the pretracheal vanessa on, AP window prevascular space. There is a 1.6 x 1.9 cm right hilar lymph node Heart and vessels: At least moderate coronary artery calcifications and mild calcifications of the t horacic aorta and branch vessels there is right heart enlargement and mild prominence of the central pulmonary arteries. Musculoskeletal / Body wall: There are pedicle screws at T11 and 12 with posterior fixation rods ar e incompletely imaged. There is a moderate compression fracture to T10 vertebral body that was not p resent previously. This vertebral body has a mixed lytic and sclerotic pattern suggesting a possible pathologic fracture Upper abdomen: negative. IMPRESSION: Extensive pleural parenchymal scarring throughout the lungs that appears similar to the prior study o ther than a slight increase in the linear airspace consolidation in the left lower lobe. There is ex tensive peribronchial thickening and honeycombing in the lung bases Small nonspecific mediastinal lymph nodes 1.6 x 1.9 cm right hilar lymph node which may be reactive Atherosclerotic calcifications. Right heart enlargement. Mildly prominent central pulmonary arteries which can be seen with pulmonary arterial hypertension There is a moderate compression fracture of T10 was not present previously. The vertebral body has a mixed lytic and sclerotic pattern suggesting a possible pathologic fracture. Report Dictated By: Tory Rodriguez MD at 10/12/2018 3:07 PM Report E-Signed By: Tory Rodriguez MD at 10/12/2018 3:58 PM WSN:[email or web address]
== END ==
LOC: CT 00:48
PROVIDERS: ATTEND Family Medicine
DX: R91.8 Other nonspecific abnormal finding of lung field (principal); I25.10 Atherosclerotic heart disease of native coronary artery without angina pectoris; I51.7 Cardiomegaly; I27.20 Pulmonary hypertension, unspecified; R59.0 Localized enlarged lymph nodes
CPT/HCPCS: 71270; Q9967